=== PATIENT | female | born 1990 | race Caucasian/White ===

== ENCOUNTER 2021-12-01 20:03 | Inpatient (IN) | payer OTHER ==
[~2021-12-01] VITALS: Ht 172.7 cm; Wt 128.4 kg
[2021-12-01 20:47] LABS: HGB 11.3 g/dl (12.5-16.0); MCH 28.4 pg (25.0-31.0); MCHC 33.2 g/dL (32.0-36.0); MCV 85.4 fL (78.0-100.0); MPV 12.8 fL (6.0-9.5); RBC 3.98 M/uL (4.20-5.40); RDW 14.1 % (11.5-14.0); WBC 13.8 K/uL (4.0-10.5)
[2021-12-01 20:48] LABS: AMPHETAMINES NEGATIVE (NEGATIVE); BARBITURATES NEGATIVE (NEGATIVE); BILIRUBIN NEGATIVE (NEGATIVE); BLOOD NEGATIVE Ery/uL (NEGATIVE); CLARITY CLEAR (CLEAR); COLOR YELLOW (YELLOW); ECSTASY (MDMA) NEGATIVE (NEGATIVE); GLUCOSE (U) NORMAL (NORMAL); LEUKOCYTES NEGATIVE Leu/uL (NEGATIVE); MARIJUANA (THC) NEGATIVE (NEGATIVE); METHADONE NEGATIVE (NEGATIVE); NITRITE NEGATIVE (NEGATIVE); OPIATES NEGATIVE (NEGATIVE); OXYCODONE NEGATIVE (NEGATIVE); PROTEIN NEGATIVE (NEGATIVE); SPECIFIC GRAVITY 1.025 (1.001-1.030); UROBILINOGEN 0.2 mg/dL (0.2-1.0); pH 6.5 (5.0-9.0)
[2021-12-01 21:18] LABS: ALBUMIN 2.7 g/dL (3.4-5.0); BILIRUBIN - TOTAL 0.3 mg/dL (0.2-1.0); BUN/CREAT RATIO (CALC) 15.5 RATIO; CREATININE 0.71 mg/dL (0.51-0.95); GLOBULIN (CALCULATION) 3.9 g/dL; POTASSIUM 4.2 mmol/L (3.5-5.1); TOTAL PROTEIN 6.6 g/dL (6.4-8.2)
[2021-12-03 06:48] LABS: HCT 26.4 % (37.0-47.0); HGB 8.9 g/dl (12.5-16.0); MCH 29.6 pg (25.0-31.0); MCHC 33.7 g/dL (32.0-36.0); MCV 87.7 fL (78.0-100.0); MPV 12.7 fL (6.0-9.5); RBC 3.01 M/uL (4.20-5.40); RDW 14.6 % (11.5-14.0); WBC 14.4 K/uL (4.0-10.5)
[2021-12-03 07:17] LABS: INR 0.96 (0.9-1.2); PROTHROMBIN TIME 12.2 SECONDS (11.8-13.4); PTT 30.8 SECONDS (24.4-34.7)
[2021-12-04] MEDS ORDERED: FEOSOL325 MG PO (08:03)
[2021-12-04] MEDS ORDERED: IBUPROFEN800 MG PO (08:03)
[2021-12-04] MEDS ORDERED: COLACE100 MG PO (08:04)
[2021-12-04] MEDS ORDERED: PRENATAL FORMU1 EACH PO (08:05)
== END 2021-12-04 12:45 | disposition home or self-care (01) | DRG 806 ==
LOC: FOB 20:03
PROVIDERS: ADMIT Obstetrics & Gynecology
PROC: 10E0XZZ Delivery of Products of Conception, External Approach (ICD-10-PCS; principal; 2021-12-02)
PROC: 0KQM0ZZ Repair Perineum Muscle, Open Approach (ICD-10-PCS; 2021-12-02)
PROC: 3E0P7VZ Introduction of Hormone into Female Reproductive, Via Natural or Artificial Opening (ICD-10-PCS; 2021-12-02)
DX: O24.429 Gestational diabetes mellitus in childbirth, unspecified control (principal); O72.1 Other immediate postpartum hemorrhage; Z37.0 Single live birth; D62 Acute posthemorrhagic anemia; O99.324 Drug use complicating childbirth; F11.20 Opioid dependence, uncomplicated; Z3A.39 39 weeks gestation of pregnancy; O99.214 Obesity complicating childbirth; Z20.822 Contact with and (suspected) exposure to COVID-19; E66.01 Morbid (severe) obesity due to excess calories; O99.892 Other specified diseases and conditions complicating childbirth; O70.1 Second degree perineal laceration during delivery; O90.81 Anemia of the puerperium; O99.824 Streptococcus B carrier state complicating childbirth; M41.9 Scoliosis, unspecified
CPT/HCPCS: 36415; 80053; 80305; 81003; 82009; 82947; 85384; 85610; 85730; J1200; J2300; J2540; J2795; J2916; J7120; U0002